=== PATIENT | male | born 1955 | race Caucasian/White ===

== ENCOUNTER 2018-07-07 10:17 | Emergency (ER) | payer OTHER ==
[~2018-07-07] VITALS: Ht 170.2 cm; Wt 90.7 kg
[2018-07-07 10:53] VITALS: BP 141/69
--- NOTE | 2018-07-07 11:03 | NUR ---
PATIENT PRESENTS TO ED WITH pt c/o awoke with severe right shoulder pain x today---has had bilateral shoulder issues in the past--- unable to raise rue above chest level today---denies recent injury . DENIES N/V/D; SKIN IS PINK/WARM/DRY; AAOX4 WITH EVEN AND STEADY GAIT; LUNGS CLEAR BL; HR EVEN AND REGULAR; PT DENIES ANY FEVER, CP, SOB, OR COUGH AT THIS TIME; PATIENT STATES PAIN OF 10/10 AT THIS TIME; VSS; PATIENT POSITIONED FOR COMFORT; HOB ELEVATED; BEDRAILS UP X2; BED DOWN. ER MD MADE AWARE OF PT STATUS.
[2018-07-07] MEDS ORDERED: traMADol 50 MG TAB PO ONE (12:00)
[2018-07-07] MEDS ORDERED: DEXAMETHASONE 10 MG/ML VIAL IM ONE (12:00)
[2018-07-07] MEDS ORDERED: KETOROLAC 60 MG/2 ML VIAL IM ONE (12:00)
[2018-07-07 13:06] VITALS: BP 134/87
--- NOTE | 2018-07-07 13:06 | NUR ---
Patient discharged with v/s stable. Written and verbal after care instructions given and explained. Patient alert, oriented and verbalized understanding of instructions. Ambulatory with steady gait. All questions addressed prior to discharge. ID band removed. Patient advised to follow up with PMD. Rx of voltaren/tramadol given. Patient educated on indication of medication including possible reaction and side effects. Opportunity to ask questions provided and answered.
== END 2018-07-07 13:06 | disposition home or self-care (01) ==
LOC: MED 10:17
DX: M75.01 Adhesive capsulitis of right shoulder (principal)
CPT/HCPCS: 73030; 96372; 99283; J1100; J1885; Q0092; 96374